=== PATIENT | female | born 1980 | race Hispanic/Latino ===

== ENCOUNTER 2018-02-02 15:18 | Emergency (ER) | payer OTHER ==
[2018-02-02] MEDS ORDERED: LIDOCAINE 1% 2 ML VIAL INJ ONE (15:24)
[2018-02-02] MEDS ORDERED: CEPHALEXIN 500MG CAP (ER DISP) PO ONE (16:12)
[2018-02-02] MEDS ORDERED: HYDROcodone 5MG/APAP 325MG 1 EA TAB PO ONE (16:13)
--- NOTE | 2018-02-02 16:15 | ED.PDOC ---
History of Present Illness - General Chief Complaint: Laceration Stated Complaint: R knee laceration Time Seen by Provider: 02/02/18 15:37 Source: patient Exam Limitations: no limitations - History of Present Illness Timing/Duration: 1 hour - [place] in the [place] Severity: moderate Improving Factors: immobilization Worsening Factors: movement Associated Symptoms: denies symptoms Allergies/Adverse Reactions: Allergies NO KNOWN ALLERGY Allergy (Verified 02/02/18 15:57) Home Medications: Ambulatory Orders Cephalexin 500 mg PO TID #15 cap 02/02/18 Tramadol HCl 50 mg PO Q4HR PRN #15 tab 02/02/18 Review of Systems - Review of Systems Constitutional: States: no symptoms reported EENTM: States: no symptoms reported Respiratory: States: no symptoms reported Cardiology: States: no symptoms reported Gastrointestinal/Abdominal: States: no symptoms reported Genitourinary: States: no symptoms reported Skin: States: other - laceration to R knee Neurological: States: no symptoms reported Physical Exam - Physical Exam General Appearance: Alert, Anxious Extremity: no pedal edema, no calf tenderness, other - jagged 5 cm lac to anterior R knee without active bleeding, decreased ROM due to pain from lac Neurologic: no motor/sensory deficits, alert, normal mood/affect, oriented x 3 Skin Exam: normal color, warm/dry Procedures - Laceration/Wound Repair Right Anterior Knee Wound's Depth, Shape: irregular, flap Wound Explored: contaminated - sand in wound Irrigated w/ Saline (cc's): 250 Betadine Prep?: No Anesthesia: 1% Lidocaine Volume Anesthetic (cc's): 10 Wound Debrided: minimal Wound Repaired With: sutures Suture Size/Type: 3:0, prolene Number of Sutures: 6 Layer Closure?: No Sterile Dressing Applied?: Yes Splint Applied?: Yes Type of Splint Applied: knee immobilizer Departure - Departure Clinical Impression: Laceration Disposition: Discharge to Home or Self Care Departure Forms: ED Discharge - Pt. Copy, Patient Portal Self Enrollment Prescriptions: Tramadol HCl 50 mg PO Q4HR PRN #15 tab PRN Reason: Pain -- Moderate To Severe Cephalexin 500 mg PO TID #15 cap Home Medications: Ambulatory Orders Cephalexin 500 mg PO TID #15 cap 02/02/18 Tramadol HCl 50 mg PO Q4HR PRN #15 tab 02/02/18
[2018-02-02] MEDS ORDERED: CEPHALEXIN MONOHYDRATE 500 MG CAP ONE (16:42)
[2018-02-02] MEDS ORDERED: CEPHALEXIN MONOHYDRATE 500 MG CAP PO ONE (16:53)
[2018-02-02 18:26] VITALS: O2SAT 98
[2018-02-02 18:30] VITALS: BP 103/66; TEMP 98
== END 2018-02-02 17:07 | disposition home or self-care (01) ==
LOC: ER 15:18
DX: S81.011A Laceration without foreign body, right knee, initial encounter (principal); W01.198A Fall on same level from slipping, tripping and stumbling with subsequent striking against other object, initial encounter; Y92.828 Other wilderness area as the place of occurrence of the external cause